=== PATIENT | male | born 1985 | race Caucasian/White ===

== ENCOUNTER 2021-12-08 10:50 | Outpatient (CLI) | payer OTHER ==
--- NOTE | 2021-12-08 11:58 | XRay Report ---
CHEST 2 VIEWS INDICATION: RULE OUT ACTIVE TB. COMPARISON: none FINDINGS: Support devices: None. Heart: Within normal limits. Lungs/pleura: No acute air space or interstitial disease. No pneumothorax. Additional findings: None. IMPRESSION: No acute findings. No findings to suggest primary or reactive tuberculosis. Signer Name: Blake Ohara Jr, MD Signed: 12/08/2021 11:54 AM Workstation Name: [id number]
== END 2021-12-08 10:51 | disposition home or self-care (01) ==
LOC: XRAY 10:50
PROVIDERS: ATTEND Internal Medicine
DX: A15.9 Respiratory tuberculosis unspecified (principal)
CPT/HCPCS: 71046